=== PATIENT | female | born 1990 | race Caucasian/White ===

== ENCOUNTER 2020-02-10 | Emergency (ER) | payer SELFPAY ==
--- NOTE | 2020-02-10 15:18 | ER ---
Nurse's Notes [facility] Name: Marilee Correa Age: 29 yrs Sex: Female : 1990 Arrival Date: 02/10/2020 Time: 14:58 Bed 17 Private MD: Diagnosis: Other specified disorders of teeth and supporting structures Presentation: 02/09 15:03 Chief complaint: Patient states: R lower jaw tooth pain for 2 days. No fever. ll1 Coronavirus screen: Client denies travel out of the [place] in the last 14 days. At this time, the client does not indicate any symptoms associated with coronavirus-19. Ebola Screen: Patient denies travel to an Ebola-affected area in the 21 days before illness onset. Initial Sepsis Screen: Does the patient meet any 2 criteria? No. Patient's initial sepsis screen is negative. Does the patient have a suspected source of infection? Yes: Other: dental pain. Risk Assessment: Do you want to hurt yourself or someone else? Patient reports no desire to harm self or others. Onset of symptoms was February 09, 2020. 15:03 Method Of Arrival: Ambulatory [facility] 15:03 Acuity: STUART 5 ll1 15:05 Coronavirus screen: The client reports previous COVID testing was negative. ll1 Historical: - Allergies: 15:04 No Known Allergies; ll1 - PMHx: 15:04 None; ll1 - PSHx: 15:04 ; ll1 - Immunization history:: Flu vaccine is not up to date. - Social history:: Smoking status: Patient reports the use of cigarette tobacco products, smokes one-half pack cigarettes per day. Screenin:19 Abuse screen: Denies threats or abuse. Nutritional screening: No deficits noted. em Tuberculosis screening: No symptoms or risk factors identified. Fall Risk None identified. Assessment: 15:20 General: Appears in no apparent distress. comfortable, Behavior is calm, cooperative, em appropriate for age, Denies fever. Pain: Complains of pain in lower right third molar (#32) Pain currently is 8 out of 10 on a pain scale. Neuro: Level of Consciousness is awake, alert, obeys commands, Oriented to person, place, time, situation. Cardiovascular: Capillary refill < 3 seconds Patient's skin is warm and dry. Respiratory: Airway is patent Respiratory effort is even, unlabored, Respiratory pattern is regular, symmetrical. EENT: Oral mucosa is moist. Throat is clear. Derm: Skin is intact, is healthy with good turgor, Skin is pink, warm \T\ dry. Musculoskeletal: Capillary refill < 3 seconds, Range of motion: intact in all extremities. Vital Signs: 15:03 BP 136 / 82; Pulse 80; Resp 16; Temp 97.0; Pulse Ox 98% on R/A; Weight 87.54 kg; Height ll1 5 ft. 9 in. (175.26 cm); Pain 8/10; 15:03 Body Mass Index 28.50 (87.54 kg, 175.26 cm) ll1 ED Course: 14:58 Patient arrived in ED. as 15:00 Leonel Dumas PA is PHCP. cp 15:00 Radha Sullivan MD is Attending Physician. cp 15:02 Eric Day, RN is Primary Nurse. em 15:04 Triage completed. ll1 15:04 Arm band placed on Patient placed in an exam room, on a stretcher. ll1 15:19 Patient has correct armband on for positive identification. Call light in reach. em 15:19 No provider procedures requiring assistance completed. Patient did not have IV access em during this emergency room visit. Administered Medications: No medications were administered Outcome: 15:18 Discharge ordered by MD. cp 15:31 Patient left the ED. em Signatures: Eric Day, RN RN em Faith Meier as Leonel Dumas PA PA cp Jessica Dunn RN RN ll1
--- NOTE | 2020-02-10 15:19 | EDPHYS ---
Physician Documentation [facility] Name: Marilee Correa Age: 29 yrs Sex: Female : 1990 Arrival Date: 02/10/2020 Time: 14:58 Bed 17 Private MD: ED Physician Radha Sullivan HPI: 02/09 15:13 This 29 yrs old Female presents to ER via Ambulatory with complaints of cp Toothache. 15:13 The patient presents with pain. The problem is located in the right lower tooth. Onset: cp The symptoms/episode began/occurred yesterday. Duration: The symptoms are continuous. Associated signs and symptoms: Pertinent negatives: dysphagia, fever, inability to eat. Historical: - Allergies: 15:04 No Known Allergies; ll1 - PMHx: 15:04 None; ll1 - PSHx: 15:04 ; ll1 - Immunization history:: Flu vaccine is not up to date. - Social history:: Smoking status: Patient reports the use of cigarette tobacco products, smokes one-half pack cigarettes per day. ROS: 15:14 Constitutional: Negative for fever, poor PO intake. cp 15:14 ENT: Positive for dental pain, Negative for ear pain, sore throat, difficulty swallowing, difficulty handling secretions. 15:14 Neck: Negative for pain with movement, pain at rest, swelling. 15:14 Skin: Negative for rash. 15:14 All other systems are negative. Exam: 15:15 Head/Face: Normocephalic, atraumatic. cp 15:15 Constitutional: The patient appears in no acute distress, alert, awake, non-toxic, well developed, well nourished. 15:15 Eyes: Periorbital structures: appear normal, Conjunctiva: normal, no exudate, no injection, Lids and lashes: appear normal, bilaterally. 15:15 ENT: External ear(s): are unremarkable, Nose: is normal, Mouth: Lips: moist, Oral mucosa: pink and intact, moist, Posterior pharynx: Airway: no evidence of obstruction, patent, Tonsils: are normal in appearance, swelling, is not appreciated, erythema, is not appreciated, exudate, is not appreciated, Dental exam: abscess, is not appreciated, dental caries, that is moderate, diffusely, fractured teeth are noted, specifically the lower right third molar (#32), gum swelling, not appreciated, pain, that is moderate, specifically in the lower right third molar (#32), Voice: is normal. 15:15 Neck: Lymph nodes: no appreciated lymphadenopathy. 15:15 Chest/axilla: Inspection: normal. 15:15 Cardiovascular: Rate: normal. 15:15 Respiratory: the patient does not display signs of respiratory distress, Respirations: normal. Vital Signs: 15:03 BP 136 / 82; Pulse 80; Resp 16; Temp 97.0; Pulse Ox 98% on R/A; Weight 87.54 kg; Height ll1 5 ft. 9 in. (175.26 cm); Pain 8/10; 15:03 Body Mass Index 28.50 (87.54 kg, 175.26 cm) ll1 MDM: 15:02 Patient medically screened. cp 15:17 Data reviewed: vital signs, nurses notes, and as a result, I will discharge patient. cp 15:20 ED course: Review of [place] prescription monitor website negative for active cp prescriptions for narcotics. Administered Medications: No medications were administered Disposition: 15:21 Chart complete. cp Disposition: 02/10/20 15:18 Discharged to Home. Impression: Other specified disorders of teeth and supporting structures. - Condition is Stable. - Discharge Instructions: Dental Pain. - Prescriptions for Amoxicillin 875 mg Oral Tablet - take 1 tablet by ORAL route every 12 hours for 10 days; 20 tablet. Ibuprofen 800 mg Oral Tablet - take 1 tablet by ORAL route every 8 hours As needed take with food; 30 tablet. Tramadol 50 mg Oral Tablet - take 1 tablet by ORAL route every 8 hours as needed; 12 tablet. - Medication Reconciliation Form, Thank You Letter, Antibiotic Education, Prescription Opioid Use form. - Follow up: Private Physician; When: 2 - 3 days; Reason: Recheck today's complaints. - Problem is new. - Symptoms are unchanged. Addendum: 02/12/2020 11:04 Co-signature as Attending Physician, Radha Sullivan MD. m a2 Signatures: Eric Day, RN RN em Leonel Dumas PA PA cp Radha Sullivan MD MD ma2 Jessica Dunn RN RN ll1 Corrections: (The following items were deleted from the chart) 02/09 15:31 15:18 02/10/2020 15:18 Discharged to Home. Impression: Other specified disorders of em teeth and supporting structures. Condition is Stable. Forms are Medication Reconciliation Form, Thank You Letter, Antibiotic Education, Prescription Opioid Use. Follow up: Private Physician; When: 2 - 3 days; Reason: Recheck today's complaints. Problem is new. Symptoms are unchanged. cp
== END 2020-02-10 15:31 | disposition home or self-care (01) ==
CPT/HCPCS: 99281